=== PATIENT | male | born 1995 | race Caucasian/White ===

== ENCOUNTER 2021-11-03 16:23 | Emergency (ER) | payer MEDICAID ==
[~2021-11-03] VITALS: Ht 170.2 cm; Wt 60.0 kg
[2021-11-03 17:01] VITALS: BP 101/53
== END 2021-11-03 17:17 | disposition home or self-care (01) ==
LOC: ER 16:23
DX: U07.1 COVID-19 (principal)
CPT/HCPCS: 99283; C9803; U0003; U0005